=== PATIENT | female | born 1970 | race Two or more races ===

== ENCOUNTER 2023-12-06 13:12 | Emergency (ER) | payer MEDICAID ==
[~2023-12-06] VITALS: Ht 157.5 cm; Wt 69.4 kg
[2023-12-06 13:38] VITALS: BP 142/69; PULSE 104; RESP 16; O2SAT 96
== END 2023-12-06 14:59 | disposition left against medical advice (07) ==
LOC: ER 13:12
DX: J02.9 Acute pharyngitis, unspecified (principal); R50.9 Fever, unspecified; M79.10 Myalgia, unspecified site; Z53.21 Procedure and treatment not carried out due to patient leaving prior to being seen by health care provider

== ENCOUNTER 2024-07-15 11:34 | Emergency (ER) | payer MEDICAID ==
[~2024-07-15] VITALS: Ht 157.5 cm; Wt 68.8 kg
[2024-07-15] MEDS ORDERED: IBUP1TAB5 PO (14:37)
[2024-07-15 14:44] VITALS: BP 168/101; PULSE 60; RESP 14; TEMP 97.9; O2SAT 95
[2024-07-15] MEDS: KETOROLAC TROMETH 30 MG/ML 1ML VIAL IM ONE (14:54)
== END 2024-07-15 15:29 | disposition home or self-care (01) ==
LOC: ER 11:34
DX: G89.29 Other chronic pain (principal); M54.9 Dorsalgia, unspecified; Z79.899 Other long term (current) drug therapy
CPT/HCPCS: 93005; 96372; 99283; J1885

== ENCOUNTER 2024-11-06 19:10 | Emergency (ER) | payer MEDICAID ==
[~2024-11-06] VITALS: Ht 152.4 cm; Wt 71.3 kg
[~2024-11-06 19:10] MED LIST: IBUP1TAB5 PO
--- NOTE | 2024-11-06 20:46 | ED.PDOC ---
General HPI Comments 54y [place]-speaking only F who presents to the ED for chief complaint of urinary symptoms. Pt states she has been having dysuria and lower pelvic pain for the past 1 months. Pt states her pain is constant, pressure like pain, with no associated exacerbating or relieving factors. Pt otherwise denies nausea, vomiting, fever, cough, chills, hematuria or hematemesis. Pt denies any other symptoms at this time. Vital signs were stable at arrival. Chief Complaint: Urinary Time Seen by MD: 20:45 Primary Care Provider: ANDRÉS Reviewed notes: Nurses Notes, Medications Allergies: Coded Allergies: NO KNOWN ALLERGIES (Unverified , 12/06/23) Home Meds Active Scripts Ibuprofen Micronized (Ibuprofen) 600 Mg Tab, 600 MG PO Q8HPRN PRN, #20 TAB Prov:YARA GARCIA KENNEDY PAC 07/15/24 Information Source: Patient Mode of Arrival: Ambulatory Brought in by: self Severity: Moderate Timing: Weeks Duration: Since onset Prehospital treatment: None Onset: Spontaneous Symptoms: Dysuria History of: None Location: Suprapubic associated signs and symptoms: Abdominal Pain Past Medical History PAST MEDICAL HISTORY: Denies Surgical History: Denies all surgeries WAGE ANALYST 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 History Family History Family History: Reviewed,noncontributory to illness, No family hx of Cancer, No family hx of DM, No family hx of Heart brianne, No family hx of HTN, No family hx ofKidney brianne, No family hx of Liver brianne, No family hx of Lung brianne, No family hx of Stroke Social History Smoker: Non-Smoker Alcohol: Denies ETOH Use Drugs: Denies Drug Use Lives In: Home Constitutional: denies: chills, diaphoresis, fatigue, fever, malaise, sweats, weakness, others EENTM: denies: blurred vision, double vision, ear bleeding, ear discharge, ear drainage, ear pain, ear ringing, eye pain, eye redness, hearing loss, mouth pain, mouth swelling, nasal discharge, nose bleeding, nose congestion, nose pain, photophobia, tearing, throat pain, throat swelling, voice changes, others Respiratory: denies: cough, hemoptysis, orthopnea, SOB at rest, shortness of breath, SOB with excertion, stridor, wheezing, others Cardiovascular: denies: chest pain, dizzy spells, diaphoresis, Dyspnea on exertion, edema, irregular heart beat, left arm pain, lightheadedness, palpitations, PND, syncope, others Gastrointestinal: reports: abdominal pain; denies: abdomen distended, blood streaked bowels, constipated, diarrhea, dysphagia, difficulty swallowing, hematemesis, melena, nausea, poor appetite, poor fluid intake, rectal bleeding, rectal pain, vomiting, others Genitourinary: reports: dysuria; denies: abnormal vagina bleeding, burning, dyspareunia, flank pain, frequency, hematuria, incontinence, pain, , vagina discharge, urgency, others Neurological: denies: dizziness, fainting, headache, left sided numbness, left sided weakness, numbness, paresthesia, pre-existing deficit, right sided numbness, right sided weakness, seizure, speech problems, tingling, tremors, weakness, others Musculoskeletal: denies: back pain, gout, joint pain, joint swelling, muscle pain, muscle stiffness, neck pain, others Integumetry: denies: bruises, change in color, change in hair/nails, dryness, laceration, lesions, lumps, rash, wounds, others Allergic/Immunocompromised: denies: Difficulty Healing, Frequent Infections, Hives, Itching, others Hematologic/Lymphatic: denies: anemia, blood clots, easy bleeding, easy bruising, swollen glands, others Endocrine: denies: excessive hunger, excessive sweating, excessive thirst, excessive urination, flushing, intolerance to cold, intolerance to heat, unexplained weight gain, unexplained weight loss, others Psychiatric: denies: anxiety, bipolar disorder, depression, hopeless, panic disorder, schizophrenia, sleepless, suicidal, others All Other Systems: Reviewed and Negative Physical Exam General Appearance: Mild Distress (Moderate distress due to urinary discomfort.), Normal HEENT: Normal ENT Inspection, Pharynx Normal, TMs Normal Neck: Full Range of Motion, Non-Tender, Normal, Normal Inspection Respiratory: Chest Non-Tender, Lungs Clear, No Accessory Muscle Use, No Respiratory Distress, Normal Breath Sounds Cardiovascular: No Edema, No JVD, No Murmur, No Gallop, Normal Peripheral Pulses, Regular Rate/Rhythm Breast Exam: Deferred Gastrointestinal: No Organomegaly, Non Tender, No Pulsatile Mass, Normal Bowel Sounds, Soft Genitalia: Deferred Pelvic: Other (Mild suprapubic tenderness.) Rectal: Deferred Extremities: No calf tenderness, Normal capillary refill, Normal inspection, Normal range of motion, Non-tender, No pedal edema Neurologic: Alert, assembler insulator II-XII nml as Tested, No Motor Deficits, Normal Affect, Normal Mood, No Sensory Deficits Cerebellar Function: Normal Reflexes: Normal Skin: Dry, Normal Color, Warm Lymphatic: No Adenopathy Was a procedure done? Was a procedure done?: No Differential Diagnosis Kidney stone (Female): N/A Urinary Problem (Female): Pyelonephritis, Urinary retention, UTI X-Ray, Labs, Meds, VS Lab Test 11/06/24 20:13 Range/Units Urine Color Colorless Yellow Urine Clarity Turbid H Clear Urine pH 7.0 5.0-9.0 Urine Specific [place] 1.004 1.001-1.035 Urine Protein Negative Negative Urine Ketones Negative Negative Urine Blood Trace H Negative /uL Urine Nitrite Negative Negative Urine Bilirubin Negative Negative Urine Urobilinogen Normal Negative mg/dL Urine Leukocyte Esterase 3+ Negative /uL Urine RBC 1 0 - 4 /hpf Urine WBC 242 0 - 5 /hpf Urine Squamous Epithelial Cells Few <5 /hpf Urine Bacteria Few H None Seen /hpf Urine Glucose Normal Normal mg/dL X-Ray, Labs, Meds, VS Comment All studies performed the ED today were evaluated by me personally. Urine results were confirmation of the UTI. Patient was given 1st dose of antibiotics prior to discharge. Advised patient utilize antibiotics as directed until completion as well as additional medication as needed. Patient should practice good hydration throughout illness event. Time of 1ST Reevaluation: 21:26 Reevaluation 1ST: Improved Consultation: PCP Patient Education/Counseling: Diagnosis, Treatment Family Education/Counseling: Diagnosis, Treatment, No Family Present Departure 1 Departure Time of Disposition: 21:26 Impression: Primary Impression: UTI (urinary tract infection) Disposition: HOME / SELF CARE / HOMELESS Condition: Stable Additional Instructions: Advised patient utilize antibiotics as directed until completion as well as additional medication as needed. Patient should practice good hydration and healthy nutrition throughout illness event. e-Prescriptions Acetaminophen (Acetaminophen) 500 Mg Tab 500 MG PO Q4HP PRN, #30 TAB Prov: IFEOMA LANDIS PAC 11/06/24 Nitrofurantoin Monohydrate Mac (Macrobid) 100 Mg Cap 100 MG PO BID for 7 Days, #14 CAP Prov: IFEOMA LANDIS PAC 11/06/24 Discharged With: Self, Friend Critical Care Note Critical Care Time?: No Stability Stability form required: No Heart Score Heart Score: Heart Score Response (Comments) Value History N/A 0 EKG N/A 0 Age N/A 0 Risk Factors N/A 0 Troponin N/A 0 Total 0 I personally scribed for IFEOMA LANDIS PAC ([email or web address]) on 11/06/24 at 20:46. Electronically submitted by Roma Brewer ([email or web address]). IFEOMA LANDIS PAC Nov 06, 2024 20:46
[2024-11-06 21:04] LABS: Urine Bacteria FEW /hpf (None Seen); Urine Blood TRACE /uL (Negative); Urine Clarity Turbid (Clear); Urine Color Colorless (Yellow); Urine Protein, UAD Negative (Negative); Urine Specific Gravity 1.004 (1.001-1.035); Urine Urobilinogen Normal (Negative); Urine WBC 242 /hpf (0 - 5)
[2024-11-06] MEDS ORDERED: ACET500T58 PO (21:27)
[2024-11-06] MEDS ORDERED: NITR-87 PO (21:27)
[2024-11-06] MEDS: NITROFURANTOIN 100 mg CAP PO ONE (21:50)
[2024-11-06] MEDS: ACETAMINOPHEN 325 MG TAB PO ONE (21:51)
[2024-11-06 21:52] VITALS: BP 152/81; TEMP 98.2
[2024-11-06 21:58] VITALS: PULSE 60; RESP 16; O2SAT 96
== END 2024-11-06 21:52 | disposition home or self-care (01) ==
LOC: ER 19:10
DX: N39.0 Urinary tract infection, site not specified (principal)
CPT/HCPCS: 81001

== ENCOUNTER 2025-02-28 07:55 | Emergency (ER) | payer MEDICAID ==
[~2025-02-28] VITALS: Ht 157.5 cm; Wt 69.4 kg
[~2025-02-28 07:55] MED LIST changes: +ACET500T58 PO; +NITR-87 PO
[2025-02-28 08:26] VITALS: BP 141/80; PULSE 70; RESP 16; TEMP 97.8; O2SAT 96
--- NOTE | 2025-02-28 08:28 | ED.PDOC ---
History of Present Illness HPI Comments 54 y.o female presents to the ED for a chief complaint of a productive cough associated with chest congestion, headache, and muscle pain that started 4 days ago. Patient reports no phlegm sputum, fever, chills, nausea, or vomiting. Patient denies any medical history or allergies. Chief Complaint: Flu like Time Seen by MD: 08:18 Primary Care Provider: ANDRÉS Luna Notes: Nurses Notes, Medications, Allergies Allergies: Coded Allergies: NO KNOWN ALLERGIES (Unverified , 12/06/23) Home Meds Active Scripts Acetaminophen (Acetaminophen) 500 Mg Tab, 500 MG PO Q4HP PRN, #30 TAB Prov:SABIHAIFEOMA Antonia PAC 11/06/24 Nitrofurantoin Monohydrate Mac (Macrobid) 100 Mg Cap, 100 MG PO BID for 7 Days, #14 CAP Prov:SABIHA,IFEOMA Antonia PAC 11/06/24 Ibuprofen Micronized (Ibuprofen) 600 Mg Tab, 600 MG PO Q8HPRN PRN, #20 TAB Prov:YARA GARCIA PAC 07/15/24 Information Source: Patient Mode of Arrival: Ambulatory Timing: Days (4) Duration: Since onset Past Medical History PAST MEDICAL HISTORY: Denies Surgical History: Denies all surgeries CRANBERRY SORTER 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 SORTER History Family History Family History: Reviewed,noncontributory to illness, No family hx of Cancer, No family hx of DM, No family hx of Heart brianne, No family hx of HTN, No family hx ofKidney brianne, No family hx of Liver brianne, No family hx of Lung brianne, No family hx of Stroke Social History Smoker: Non-Smoker Alcohol: Denies ETOH Use Drugs: Denies Drug Use Lives In: Home Constitutional: denies: chills, diaphoresis, fatigue, fever, malaise, sweats, weakness, others EENTM: reports: nose congestion; denies: blurred vision, double vision, ear bleeding, ear discharge, ear drainage, ear pain, ear ringing, eye pain, eye redness, hearing loss, mouth pain, mouth swelling, nasal discharge, nose bleeding, nose pain, photophobia, tearing, throat pain, throat swelling, voice changes, others Respiratory: reports: cough; denies: hemoptysis, orthopnea, SOB at rest, shortness of breath, SOB with excertion, stridor, wheezing, others Cardiovascular: denies: chest pain, dizzy spells, diaphoresis, Dyspnea on exertion, edema, irregular heart beat, left arm pain, lightheadedness, palpi tations, PND, syncope, others Gastrointestinal: denies: abdomen distended, abdominal pain, blood streaked bowels, constipated, diarrhea, dysphagia, difficulty swallowing, hematemesis, melena, nausea, poor appetite, poor fluid intake, rectal bleeding, rectal pain, vomiting, others Genitourinary: denies: abnormal vagina bleeding, burning, dyspareunia, dysuria, flank pain, frequency, hematuria, incontinence, pain, , vagina discharge, urgency, others Neurological: reports: headache; denies: dizziness, fainting, left sided numbness, left sided weakness, numbness, paresthesia, pre-existing deficit, right sided numbness, right sided weakness, seizure, speech problems, tingling, tremors, weakness, others Musculoskeletal: reports: back pain, muscle pain; denies: gout, joint pain, joint swelling, muscle stiffness, neck pain, others Integumetry: denies: bruises, change in color, change in hair/nails, dryness, laceration, lesions, lumps, rash, wounds, others Allergic/Immunocompromised: denies: Difficulty Healing, Frequent Infections, Hives, Itching, others Hematologic/Lymphatic: denies: anemia, blood clots, easy bleeding, easy bruising, swollen glands, others Endocrine: denies: excessive hunger, excessive sweating, excessive thirst, excessive urination, flushing, intolerance to cold, intolerance to heat, unexplained weight gain, unexplained weight loss, others Psychiatric: denies: anxiety, bipolar disorder, depression, hopeless, panic disorder, schizophrenia, sleepless, suicidal, others All Other Systems: Reviewed and Negative Physical Exam General Appearance: Moderate Distress HEENT: Normal ENT Inspection, Pharynx Normal, TMs Normal Neck: Full Range of Motion, Non-Tender, Normal, Normal Inspection Respiratory: Chest Non-Tender, Lungs Clear, No Accessory Muscle Use, No Respiratory Distress, Normal Breath Sounds Cardiovascular: No Edema, No JVD, No Murmur, No Gallop, Normal Peripheral Pulses, Regular Rate/Rhythm Breast Exam: Deferred Gastrointestinal: No Organomegaly, Non Tender, No Pulsatile Mass, Normal Bowel Sounds, Soft Genitalia: Deferred Pelvic: Deferred Rectal: Deferred Extremities: No calf tenderness, Normal capillary refill, Normal inspection, Normal range of motion, Non-tender, No pedal edema Musculoskeletal : Apperance: Normal Neurologic: Alert, desktop architect II-XII nml as Tested, No Motor Deficits, Normal Affect, Normal Mood, No Sensory Deficits Cerebellar Function: Normal Reflexes: Normal Skin: Dry, Normal Color, Warm Peripheral Pulses: 3+ Radial (R), 3+ Radial (L) Lymphatic: No Adenopathy Was a procedure done? Was a procedure done?: No Differential Dx Considerations may include: URI, Viral Syndrome, Influenza, Dehydration, Electrolyte imbalance, Covid-19, Bronchitis, Pneumonia X-Ray, Labs, Meds, VS Vital Signs Date Time Temp Pulse Resp B/P (MAP) Pulse Ox O2 Delivery O2 Flow Rate FiO2 02/28/25 08:26 70 16 96 Room Air 02/28/25 08:26 97.8 70 16 141/80 (100) 96 97.8 02/28/25 08:02 97.8 70 16 141/80 (100) 96 97.8 Patient alert. Complaining of cough. Has been feeling like this for many days. Vitals stable. Answering questions. No leg swelling. Heart rate within normal limits. Saturation pristine on room air. Moving good air. Chest x-ray is not need it because clinical examination is pristine. Was given prescription of prednisone Levaquin antibiotic. Was told to follow up with her primary care physician. Was told to come back if there is any problem. Time of 1ST Reevaluation: 09:30 Reevaluation 1ST: Unchanged Patient Education/Counseling: Diagnosis, Treatment, Prognosis Family Education/Counseling: No Family Present Departure 1 Departure Time of Disposition: 08:35 Impression: Primary Impression: Pneumonitis Disposition: 01 HOME / SELF CARE / HOMELESS Condition: Good e-Prescriptions Levofloxacin Hemihydrate (LEVOFLOXACIN) 500 Mg Tab 500 MG PO DAILY for 10 Days, #10 MG Prov: BROOK EDUARDO MD 02/28/25 Prednisone (Prednisone) 20 Mg Tab 20 MG PO DAILY for 5 Days, #5 MG Prov: BROOK EDUARDO MD 02/28/25 Discharged With: Self Critical Care Note Critical Care Time?: No Stability Stability form required: No I personally scribed for BROOK EDUARDO MD ([email or web address]) on 02/28/25 at 08:28. Electronically submitted by Kim Dennis ([facility]). BROOK EDUARDO MD Feb 28, 2025 08:28
[2025-02-28] MEDS ORDERED: LEVO500T91 PO (08:36)
[2025-02-28] MEDS ORDERED: PRED20TA2 PO (08:36)
== END 2025-02-28 08:31 | disposition home or self-care (01) ==
LOC: ER 07:55
DX: J98.4 Other disorders of lung (principal)